=== PATIENT | male | born 1970 | race Caucasian/White ===

== ENCOUNTER 2024-12-29 08:15 | Outpatient (REF) | payer OTHER, SELFPAY ==
--- OUTSIDE RECORDS SUMMARY | 2023-03-27 12:00 | XMS_ITS | Continuity of Care Document ---
Author Organization [facility] Address [address] [place] [address] Phone Care Team Providers Care Vision Impaired Teacher Name Role Phone Lawrence MAYO FACS RVT Rozina TELLEZ Unavailable Unavailable Allergies, Adverse Reactions, Alerts Substance Reaction Status Criticality trimethoprim Active No Information sulfamethoxazole Active No Informat ion Medications Medication Instructions Dosage Effective Dates (start - stop) Status Comments Eliquis 2.5 mg tablet take 1 tablet by o ral route 2 times every day. Start 2 hours prior to first procedure. HOLD 24 hours prior to AP - Active Eliquis 2.5 mg tablet take 1 tab by mout h twice a day starting the day before procedures and continue taking for 1 month after procedures - Active lisinopril 20 mg tablet - Active Kapspargo Sprinkle 25 mg capsule,extended release - Active albuterol sulfate 2.5 mg/3 mL (0.083 %) solution for nebulization - Active Advair Diskus 250 mcg-50 mcg/dose powder for inhalation inhale 1 puff by inhalation route 2 times every day approximately 12 hours apart at the same times each day 1.00 puff - Active Procedures Procedure Date Office/Outpt E&M Established 15 Mins Mar Duplex Scan-extrem Veins; Uni/ Oct-06-20 23 Endovenous Laser, 1st Vein Office/Outpt E&M Established 15 Mins Oct Duplex Scan-extrem Veins; Uni/ Phleb Veins - Extrem - To 20 Endovenous Laser, 1st Vein Office/Outpt E&M Established 10 Mins - T elemedicine Office/Outpt E&M Established 15 Mins Jun Duplex Scan-extrem Veins; Comp Office/Outpt E&M Established 25 Mins May Advance Directives Directive Yes / No Effective Date File Name No Information Encounters Encounter Description Practice Location Reason(s) For Visit Diagnoses Date Provider Providers Copied on Encounter Office/Outpt E&M Established 15 Mins [facility], [address] [place] [address] Dr Mejia [address]Anthony [place], [id number], tel:[phone] [facility] Chronic venous hypertension (idiopathic) with other complications of bilateral lower extremity 3 Lawrence MAYO FACS [facility]. [address] [place] [address], [address], . tel:[phone] Referring Provider: Marcelina York DO, Rd, [place], [address]. tel:[phone] [facility], [address] [place] [address] Dr Mejia [address]Anthony [place], [id number], tel:[phone] [facility] Encounter for follow-up examination after completed treatment for conditions other than malignant neChronic venous hypertension (idiopathic) with other complications of left lower extremity 3 Lawrence MAYO FACS [facility]. [address] [place] [address], [place], [address], . tel:[phone] Referring Provider: Aixa York DOB [address]ion, [place], [address]. tel:[phone] [facility], [address] [place] [address] Dr Mejia 1000SuAnthony esparza MD, [id number], [place] tel:[phone] [facility] [place] [facility] [place] Chronic venous hypertension w inflammation of l low extrem Sep- 3 Lawrence MAYO FACS [address] [address]. [address] [place] [address], [place], [address], . tel:[phone] Referring Provider: Aixa York DOB Peter Carrion, [place], [address]. tel:[phone] Office/Outpt E&M Established 15 Mins [facility], [address] [place] [address] Dr Mejia [address] 1000Anthony [place], [id number], [place] tel:[phone] [facility] [place] Chronic venous hypertension w/o comp of l low extrem Amish- 3 Lawrence MAYO FACS [address] [place]. [address] [place] [address], [place], [address], [place]. tel:[phone] Referring Provider: Marcelina York DO, [address], [place], [address]. tel:[phone] [facility], [address] [place] [address] Dr Mejia [address] 1000Anthony [place], [id number], [place] tel:[phone] [facility] [place] [facility] [place] Encntr for f/u exam aft trtmt for cond oth than malig neoplmVenous insufficiency (chronic) (peripheral) 3 Lawrence MAYO FACS [place] [place] [address], [place], [address], [place]. tel:[phone] Referring Provider: Marcelina York DO, [address], [place], [address]. 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 [address] [place] [address], [place], [place], [id number], . tel:[phone] Referring Provider: Marcelina York DO, [address], [place], [address]. tel:[phone] [facility] [place] [facility], [address] [place] [address] Dr Mejia [address] [address]Anthony [place], [id number], tel:[phone] [facility] - [facility] Venous insufficiency (chronic) (peripheral) 3 Lawrence Vee[address] [place] [address], [facility] [place], [address], [place]. tel:[phone] Referring Provider: Reilly York [address], [place], [address]. tel:[phone] [facility], [address] [place] [address] Dr Mejia 1000[facility] 1000, [place], [id number], tel:[phone] [facility] - [facility] No Information 3 Lawrence Vee. [address] [place] [address], [facility] [place], [address], [place]. tel:[phone] Referring Provider: Reilly York DO Peter Carrion, [place], [place], [facility]. tel:[phone] Office/Outpt E&M Established 10 Mins - [facility], [address] [place] [address] Dr Mejia 1000[address] 1000Anthony [place], [id number], tel:[phone] [facility] - [facility] Personal history of other venous thrombosis and embolism 3 Lawrence Vee. [address] [place] [address], [place], [address], [place]. tel:[phone] Referring Provider: Reilly York DO Peter Carrion, [place], [place], [facility]. tel:[phone] Office/Outpt E&M Established 15 Mins [facility], [address] [place] [address] Dr Mejia 1000[address] 1000Anthony MD, [id number], tel:[phone] [facility] [place] [facility] [place] Venous insufficiency (chronic) (peripheral)N icotine dependence, unspecified, uncomplicated 3 Lawrence MAYO FACS [address] [address]. [address] [place] [address], [place], [address], . tel:[phone] Referring Provider: Marcelina York DO, Rd, [place], [place], [facility]. tel:[phone] [facility], [address] [place] [address] Dr Mejia 1000[address] 1000Anthony MD, [id number], tel:[phone] [facility] [place] [facility] [place] Venous insufficiency (chronic) (peripheral) 3 Lawrence MAYO FACS [address] [address]. [address] [place] [address], [place], [place], [facility], . tel:[phone] Referring Provider: Marcelina York DO, Rd, [place], [place], [facility]. tel:[phone] Office/Outpt E&M Established 25 Mins [facility], [address] [place] [address] Dr Mejia 1000[address] 1000Anthony MD, [id number], tel:[phone] [facility] [place] [facility] [place] Body mass index (BMI) 40.0-44.9, adultVenous insufficiency (chronic) (peripheral) 3 Lawrence MAYO FACS [address] [address]. [address] [place] [address], [place], [address], . tel:[phone] Referring Provider: Marcelina York DO, Rd, [place], [place], [facility]. tel:[phone] Family History Family Member Type Diagnosis Age At Onset No Information Payers Payer name Insurance type Covered constitution party ID Authorrosemary kaileyvicente(s) [facility] [id number] Social History Type Description Quantity Date Captured Comments Alcohol Use Details Caffeine Use Details Unknown Tobacco Use Status Smoking Status Heavy tobacco smoker Smoking Tobacco Use Details Cigarette: No Details Available Cigarette: 1 Packs per day Sex Male Chief Complaint And Reason For Visit No Information Reason For Referral Reason For Referral No Information Plan Of Treatment Date Type Action Status Goal Tobacco cessation counseling completed Goal Tobacco cessation counseling completed Goal Tobacco cessation counseling completed Goal Tobacco cessation counseling completed Goal Tobacco cessation counseling completed Goal Diet education completed History Of Present Illness Encounter Date Complaint History Of Prese nt Illness No Information Functional Status Date Functional Assessmen t No Information Instructions Date Instruction Additional Infor mation Continue compression stocking us e Related to Chrn Vns Hyprtnsn w/Compl (Pain Edema Swelling); BILAT Patient education booklet given Related to Chrn Vns Hyprtnsn w/Compl (Pain Edema Swelling); BILAT Patient education booklet given Related to Chrn Vns Hypertnsn w/o Compl; LEFT Patient education booklet given Related to Personal Hx - Venous DVT /Embolism Patient education booklet given Related to Venous Insufficiency (Chronic / Peripheral) Diet education Related to Body mass index [BMI] 40.0-44.9, adult Giving Encouragement to Exercise Related to Body mass index [BMI] 40.0-44.9, adult Assessments Type Assessment Date assessment Chronic venous hyper tension (idiopathic) with other complications of bilateral lower extremity Patient Care Teams Name Effective Dates (start - stop) Status Members No Information
--- NOTE | ~2024-12-29 | XR_ITS ---
EXAMINATION: XR KNEE 3 VIEWS RIGHT HISTORY: M17.11 - Unilateral primary osteoarthritis, right knee COMPARISON: There are no prior studies available for comparison. FINDINGS: Standing AP views of both knees and additional lateral and sunrise patellar views of the right knee are submitted. Osseous mineralization is normal. An intramedullary jc is seen in the right femur. There is a healed fracture deformity of the midshaft. No acute fracture or dislocation is seen. There is mild narrowing of the medial compartment. There is a trace joint effusion. XR/XR knee RT 3V IMPRESSION: Trace joint effusion. Mild narrowing of the medial compartment. Electronically signed by: Augusto Cheng MD 12/29/2024 11:54 AM EDT
--- OUTSIDE RECORDS SUMMARY | 2024-12-29 08:34 | XMS_ITS | Clinical Summary ---
Author Organization [facility] Address [address] [place] [address] Care Team Providers Care Eligibility Examiner Name Role Phone NeenaReinier richards Primary Care Provider [phone] Allergies Active Allergy Reactions Criticality Noted Date Comments Sulfamethoxazole-Trimethoprim Swelling Medium 2024 Medications atorvastatin (LIPITOR) 40 MG tablet 09/03/2024 Active colchicine (COLCRYS) 0.6 mg tablet Take 0.6 mg by mouth. 06/16/2024 Active fluticasone-maria m meterol (ADVAIR) 250-50 mcg/inh diskus inhaler Inhale 1 puff 2 times a day. 07/23/2024 Active lisinopril (PRINIVIL,ZeSTR IL) 10 MG tablet Take 10 mg by mouth. 07/19/2024 Active meloxicam (MOBIC) 15 MG tablet Take 15 mg by mouth. 08/08/2024 Active metoPROLOL SUCCINATE (TOPROL-XL) 25 MG 24 hr tablet Take 25 mg by mouth. 07/23/2024 Active methylPREDNISol one (MEDROL) 4 MG tablet 2 tablets by Mouth/Oral Cavity route every 12 hours. 05/29/2024 Active sildenafil (VIAGRA) 50 MG tablet Take 50 mg by mouth daily as needed. 08/21/2024 Active Encounters Date Type Department Care Team Description 10/22/2024 Telephone [facility] [address] [place] [address] Josué Mari Other (Hotline) from Last 3 Months Social History Tobacco Use Types Packs/Day Years Used Date Smoking Tobacco: Never Assessed Sex and Gender Information Value Date Recorded Sex Assigned at Male 09/04/2024 8:19 AM EDT Legal Sex Male 3:39 PM EDT Gender Identity Male 09/04/2024 8:19 AM EDT Sexual Orientation Heterosexual (straight) 09/04 8:19 AM EDT Last Filed Vital Signs Vital Sign Reading Time Taken Comments Blood Pressure - - Pulse - - Temperature - - Respiratory Rate - - Oxygen Saturation - - Inhaled Oxygen Concentration - - Weight 99.8 kg (220 lb) 09/04/2024 8:26 AM EDT Height 172.7 cm (5' 8 ) 09/04/2024 8:26 AM EDT Body Mass Index 33.45 09/04/2024 8:26 AM EDT Plan of Treatment Health Maintenance Due Date Last Done Comments Hepatitis C Virus Screening 1969 HIV Screening 1982 DTaP/Tdap/Td Vaccines (1 - Tdap) 1988 Hepatitis B Vaccines (1 of 3 - 19+ 3-dose series) 10/1988 Pneumococcal Vaccines 50+ (1 of 1 - PCV) 11/17/2019 Zoster (Shingles) Vaccine (1 of 2) 11/17/2019 COVID-19 Vaccine (1 - 2023- season) 2024 Influenza Vaccine 12/12/2024 Colonoscopy 10/24/2034 10/24/2024 Procedures Procedure Name Priority Date/Time Associated Diagnosis Comments PATHOLOGY REPORT 10/24/2024 12:0 0 AM EDT from Last 3 Months Results * Pathology (10/24/2024 12:00 AM EDT) Vandana Cornell MD PATHOLOGY/CYTOLOGY ORDERABLES Fi nal Result from Last [address] [place] [address] [place] [address] Care Teams Eligibility Examiner Relationship Specialty Start Date End Date Reinier Chaudhary DO [address] [place] [id number] PCP - General Internal Medicine 09/04/24
--- OUTSIDE RECORDS SUMMARY | 2024-12-29 08:34 | XMS_ITS ---
[facility] Name [facility] Unknown History of Medication Use Medication Directions Dispensed Refills Start Date End Date Stat us Sodium Sulfate-Mag Sulfate-KCl (Sutab) 6464-652-302 MG Tab Take 12 tablets by mouth once. One dose of 12 tablets on the Day Prior to procedure. One dose of 12 tablets on the Day Of the procedure. 09/08/2024 active atorvastatin (LIPITOR) 40 MG tablet 09/03/2024 active sildenafil (VIAGRA) 50 MG tablet Take 50 mg by mouth daily as needed. 08/21/2024 active meloxicam (MOBIC) 15 MG tablet Take 15 mg by mouth. 08/08/2024 active fluticasone-salmeterol (ADVAIR) 250-50 mcg/inh diskus inhaler Inhale 1 puff 2 times a day. 07/23/2024 active metoPROLOL SUCCINATE (TOPROL-XL) 25 MG 24 hr tablet Take 25 mg by mouth. 07/23/2024 active lisinopril (PRINIVIL,ZeSTRIL) 10 MG tablet Take 10 mg by mouth. 07/19/2024 active colchicine (COLCRYS) 0.6 mg tablet Take 0.6 mg by mouth. 06/16/2024 active methylPREDNISolone (MEDROL) 4 MG tablet 2 tablets by Mouth/Oral Cavity route every 12 hours. 05/29/2024 active Allergies Allergen Reaction Severity Comment Documented Date Source Statu s SULFAMETHOX[facility]OLE[facility] Encounters Encounter Type Encounter Reason Primary Diagnosis Location Date Ambulatory ROUTINE Encounter for screening for malignant neoplasm of colon [facility], [facility] 10/24/2024 Ambulatory Obstructive sleep apnea (adult) (pediatric) Obstructive sleep apnea (adult) (pediatric) [facility] 04/21/2024 Care Team Organization Name Specialty Phone Email Start Date End Da te [facility], [facility] 10/14/2024 [facility] 10/14/2024 [facility] Reinier Chaudhary Primary Care 09/04/2024 [facility] Augusto Stanley Primary [facility]2024
--- OUTSIDE RECORDS SUMMARY | 2024-12-29 08:34 | XMS_ITS | Clinical Summary ---
Author Organization [facility] Address [address] [place] [address] Care Team Providers Care Refractory Grinder Operator Name Role Phone Unknown, Primary Care Provider Unavailabl e Social History Tobacco Use Types Packs/Day Years Used Date Smoking Tobacco: Never Assessed Sex and Gender Information Value Date Recorded Sex Assigned at Not on file Gender Identity Not on file Sexual Orientation Not on file Job Start Date Occupation Industry Not on file Not on file Not on file Plan of Treatment Health Maintenance Due Date Last Done Comments Hepatitis B Vaccines (1 of 3 - 3-dose series) 1969 Hepatitis C Screening 1969 Depression Screening 1981 Preventative Health Evaluation 11/17/1987 DTap / Tdap / Td (1 - Tdap) 1988 Colon Cancer Screening (Colonoscopy) 2014 Shingrix-Zoster Vaccine (1 of 2) 11/17/2019 COVID-19 Vaccine (2 - season) 2024 08/18/2020 Influenza Vaccine (#1) 2025 2, 04/10/2021, 04/08/2019, Additional history exists Pneumococcal Vaccine Aged Out 05/22/2010, 03/11/20 09 No longer eligible based on patient's age to complete this topic RSV Ped < 20 months Aged Out No longe r eligible based on patient's age to complete this topic Care Teams Refractory Grinder Operator Relationship Specialty Start Date End Date Unknown, PCP - General 04/11/22
--- OUTSIDE RECORDS SUMMARY | 2024-12-29 08:34 | XMS_ITS | Clinical Summary ---
Author Organization [address] Address [address] [place] [address] Phone Care Team Providers Care Pad Machine Feeder Name Role Phone Augusto Stanley DO Primary Care Provider + Social History Tobacco Use Types Packs/Day Years Used Date Smoking Tobacco: Never Assessed Sex and Gender Information Value Date Recorded Sex Assigned at Not on file Legal Sex Male 2:39 PM EST Gender Identity Not on file Sexual Orientation Not on file Plan of Treatment Health Maintenance Due Date Last Done Comments Hepatitis B Vaccines (1 of 3 - 19+ 3-dose series) 1988 Pneumococcal Vaccine: 50+ Years (2 of 2 - PCV) 05/22/2011 05/22/2010, 03/11/2009 Zoster Vaccines (1 of 2) 11/17/2019 Cholesterol Screening (Lipid Panel) 04/12/2022 Colorectal Cancer Screening: Colonoscopy 04/12/2022 HIV Screening 04/12/2022 Hepatitis C Screening 04/12/2022 Social Influencers of Health Screening 04/12/2022 DTaP,Tdap,and Td Vaccines (2 - Td or Tdap) 05/05/2023 05/05/2013 COVID-19 Vaccine (3 - season) 2024 04/29/2021, 08/18/2020 Depression Screening 05/14/2024 Hypertension/CHF/CAD Annual BMP Blood Test 05/21/2024 Influenza Vaccine (#1) 2025 2, 04/10/2021, 04/08/2019, Additional history exists HIB Vaccines Aged Out No longer eligi ble based on patient's age to complete this topic HPV Vaccines Aged Out No longer eligi ble based on patient's age to complete this topic Hepatitis A Vaccines Aged Out No long er eligible based on patient's age to complete this topic IPV Vaccines Aged Out No longer eligi ble based on patient's age to complete this topic MMR Vaccines Aged Out No longer eligi ble based on patient's age to complete this topic Meningococcal ACWY Vaccine Aged Out N o longer eligible based on patient's age to complete this topic Meningococcal B Vaccine Aged Out No l onger eligible based on patient's age to complete this topic RSV Immunization Patients Under 20 months Aged Out No longer eligible based on patient's age to complete this topic Varicella Vaccines Aged Out No longer eligible based on patient's age to complete this topic Insurance [facility] Care Teams Pad Machine Feeder Relationship Specialty Start Date End Date Augusto Stanley DO [facility] [address] [place] [address] PCP - General Internal Medicine 11/29/20
== END 2024-12-29 08:16 | disposition home or self-care (01) ==
LOC: HO.HOSX 08:15
PROVIDERS: Visit Provider Physician Assistant
DX: M17.11 Unilateral primary osteoarthritis, right knee (principal); M22.2X1 Patellofemoral disorders, right knee; Z79.1 Long term (current) use of non-steroidal anti-inflammatories (NSAID)
CPT/HCPCS: 73562

== ENCOUNTER 2024-12-29 11:38 | Outpatient (AMB) | payer OTHER, SELFPAY ==
--- NOTE | 2024-12-29 11:48 | MHC.OFFVIS ---
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 Patient was referred by PCP office for a right knee sprain/strain. At today's visit he states that the pain has been going on since 04/2024. He reports that the right knee has a clicking sound when he walks . Patient states that he did have an x ray of the knee done, no physical therapy or injections. He added no numbness or tingling to report at this time. 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 He does not recall a specific injury but states the pain has been worse with certain activities and he notices a cracking sound in the knee. He was given a prescription for Voltaren and states since since he has been taking this medication his pain has somewhat resolved. He is able to perform activities without limitations however he continues to have the cracking sound. 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 He has full range of motion with crepitus no tenderness to palpation. Neurovascularly intact. Results Reviewed Results Reviewed: XR knee RT 3V IMPRESSION: Trace joint effusion. Mild narrowing of the medial compartment. Assessment & Plan Assessment & Plan (1) Right patellofemoral syndrome: Code(s): M22.2X1 - Patellofemoral disorders, right knee Category: Medical Plan: We discussed options which include conservative management with physical therapy and continued NSAIDs. He will proceed with activities as tolerated. We did discuss modification of activities that cause discomfort. If his symptoms worsen and are not relieved with anti-inflammatories he can see me back to discuss steroid injection otherwise he will follow up as needed. Orders: Orders XR knee RT 3V Today M17.11 - Unilateral primary osteoarthritis, right knee PT Evaluation and Treatment Today M22.2X1 - Patellofemoral disorders, right knee Coding Level of Care Code New Pt Level 3 (69099) Complex EM visit Add On G2211 Diagnoses Right patellofemoral syndrome M22.2X1
[2024-12-29 11:52] VITALS: BMI 34.2
== END 2024-12-29 13:36 | disposition home or self-care (01) ==
PROVIDERS: PCP Neuromusculoskeletal Medicine, Sports Medicine; Visit Provider Physician Assistant
DX: M22.2X1 Patellofemoral disorders, right knee (principal)
CPT/HCPCS: 99203

== ENCOUNTER → 2024-12-29 11:42 | Outpatient (BNV) | payer OTHER, SELFPAY | PROVIDERS: Visit Provider Radiology Diagnostic Radiology | DX: M25.461 Effusion, right knee (principal) | CPT/HCPCS: 73562 ==